=== PATIENT | female | born 1995 | race Caucasian/White ===

== ENCOUNTER 2018-04-15 20:49 | Emergency (ER) | payer MEDICAID, OTHER ==
[~2018-04-15] VITALS: Ht 162.6 cm; Wt 58.3 kg
[2018-04-15] MEDS ORDERED: IBUPROFEN 600MG TABLET PO STA (23:32)
[2018-04-16 00:02] LABS: CLARITY URINE CLEAR (CLEAR); COLOR URINE YELLOW (YELLOW); KETONES URINE NEGATIVE (NEGATIVE); LEUKOCYTE ESTERASE URINE NEGATIVE (NEGATIVE); NITRITE URINE NEGATIVE (NEGATIVE); OCCULT BLOOD URINE NEGATIVE (NEGATIVE); PH URINE 6.5 (4.5-8.0); PROTEIN URINE NEGATIVE (NEGATIVE); SPECIFIC GRAVITY URINE 1.022 (1.005-1.030)
[2018-04-16 01:43] VITALS: BP 110/79
== END 2018-04-16 01:42 | disposition home or self-care (01) ==
LOC: ER 20:49
DX: R10.2 Pelvic and perineal pain (principal)
CPT/HCPCS: 76830; 76856; 81003; 81025; 99285

== ENCOUNTER 2022-11-17 22:10 | Emergency (ER) | payer MEDICAID ==
[~2022-11-17] VITALS: Ht 162.6 cm; Wt 61.0 kg
[2022-11-18 00:54] VITALS: BP 115/77
== END 2022-11-18 00:58 | disposition home or self-care (01) ==
LOC: ER 22:10
DX: F41.9 Anxiety disorder, unspecified (principal)
CPT/HCPCS: 99283